=== PATIENT | female | born 1980 | race Caucasian/White ===

== ENCOUNTER 2019-04-11 19:10 | Emergency (ER) | payer SELFPAY ==
--- NOTE | ~2019-04-11 | XR_ITS ---
EXAMINATION: XR foot RT min 3V DATE: 04/11/2019 19:41 INDICATION: Pain at the right first metatarsal TECHNIQUE: Dorsoplantar, two oblique and lateral views of the right foot were obtained. COMPARISON: None. FINDINGS: Bone alignment is normal. No fracture. Mild polyarticular osteoarthritis with mild nonuniform joint s pace narrowing at multiple joints in the mid and forefoot no cortical erosions or periosteal reaction . Moderate Achilles calcaneal spur and small plantar calcaneal spur. Additional dorsal enthesophytes at both sides of the talonavicular joint. Soft tissues are unremarkable. No ankle joint effusion. IMPRESSION: 1. Mild polyarticular osteoarthritis and scattered enthesophytes. Reviewed, dictated and finalized at location [facility] [employer]
[2019-04-11 19:13] VITALS: BP 163/97; PULSE 101; RESP 18; TEMP 36.6; O2SAT 100
--- NOTE | 2019-04-11 19:35 | ED.LOWEXIN ---
HPI - Extremity Injury (Lower) General Chief Complaint: Extremity Injury, Lower <Delaney Newman PA-C - Last Filed: 04/11/19 20:25> Stated Complaint: R foot pain <Delaney Newman PA-C - Last Filed: 04/11/19 20:25> Time Seen by Provider: 04/11/19 19:22 <Delaney Newman PA-C - Last Filed: 04/11/19 20:25> Source: patient <Delaney Newman PA-C - Last Filed: 04/11/19 20:25> Mode of arrival: ambulatory <Delaney Newman PA-C - Last Filed: 04/11/19 20:25> Limitations: no limitations <Delaney Newman PA-C - Last Filed: 04/11/19 20:25> History of Present Illness HPI Narrative: This is a 38 year old female that presents to the ER for 38 year old female that presents to the ER for right foot pain since this morning. Reports no known injury or trauma. Reports pain in the dorsal surface of the foot the started this morning. No known injury or trauma. Pain is worse with weight bearing. Denies fever, erythema or edema. <Delaney Newman PA-C - Last Filed: 04/11/19 20:25> Related Data Allergies/Adverse Reactions: Allergies Allergy/AdvReac Type Severity Reaction Status Date / Time aspirin Allergy Intermediate Nausea and Verified 04/11/19 19:38 Vomiting <Delaney Newman PA-C - Last Filed: 04/11/19 20:25> Review of Systems Review of Systems: Narrative: CONSTITUTIONAL: Denies fever SKIN: Denies rash MUSCULOSKELETAL: Reports joint pain, and myalgia. NEUROLOGIC: Denies numbness <Delaney Newman PA-C - Last Filed: 04/11/19 20:25> All systems reviewed & are unremarkable except as noted in HPI and below <Delaney Newman PA-C - Last Filed: 04/11/19 20:25> PMFSH Past Medical History Medical History: Medical History (Updated 04/11/19 @ 20:23 by Delaney Newman PA-C) History of obesity <Delaney Newman PA-C - Last Filed: 04/11/19 20:25> Social History Social History: Social History (Updated 04/11/19 @ 19:40 by Delaney Newman PA-C) Substance use: never Gender identity (if verbalized by the patient): Female <Delaney Newman PA-C - Last Filed: 04/11/19 20:25> Exam Narrative: Exam Narrative: GENERAL: Well-appearing, well-nourished, and in no acute distress. HEAD: Normocephalic, atraumatic. EYES: EOMI. EXTREMITIES: Normal range of motion. No edema, erythema or obvious deformity. Tender to palpation of the right 1st metatarsal bone SKIN: Warm, dry, no rash. NEURO: No focal deficits. Alert and oriented x3. PSYCH: Normal mood and affect <Delaney Newman PA-C - Last Filed: 04/11/19 20:25> Course Vital Signs Vital signs: Vital Signs Temperature 36.6 C 04/11/19 19:13 Pulse Rate 101 H 04/11/19 19:13 Respiratory Rate 18 04/11/19 19:13 Blood Pressure 163/97 H 04/11/19 19:13 Pulse Oximetry 100 04/11/19 19:13 Temperature 37.0 C 04/11/19 20:55 Pulse Rate 68 04/11/19 20:55 Respiratory Rate 20 04/11/19 20:55 Blood Pressure 140/86 04/11/19 20:55 Pulse Oximetry 98 04/11/19 20:55 <Delaney Newman PA-C - Last Filed: 04/11/19 20:25> Vital Signs Temperature 36.6 C 04/11/19 19:13 Pulse Rate 101 H 04/11/19 19:13 Respiratory Rate 18 04/11/19 19:13 Blood Pressure 163/97 H 04/11/19 19:13 Pulse Oximetry 100 04/11/19 19:13 Temperature 37.0 C 04/11/19 20:55 Pulse Rate 68 04/11/19 20:55 Respiratory Rate 20 04/11/19 20:55 Blood Pressure 140/86 04/11/19 20:55 Pulse Oximetry 98 04/11/19 20:55 <[place]ia Cameron MD - Last Filed: 04/11/19 21:52> MDM - Extremity Injury (Lower) MDM Narrative Medical decision making narrative: Patient presents to the ER for right dorsal foot pain since this morning. No known injury or trauma. Right foot XR shows arthritis and scattered enthesophytes, no other acute osseous abnormalities. Patient will be placed in a post op shoe and given crutches for comfort. She was instructed to rest, ice and elevate. She is to take [id number] pain medication
[2019-04-11 20:55] VITALS: BP 140/86; PULSE 68; RESP 20; TEMP 37; O2SAT 98
== END 2019-04-11 20:58 | disposition home or self-care (01) ==
PROVIDERS: Emergency Provider Emergency Medicine
DX: M79.671 Pain in right foot (principal); E66.9 Obesity, unspecified; Z68.43 Body mass index [BMI] 50.0-59.9, adult; M19.071 Primary osteoarthritis, right ankle and foot
CPT/HCPCS: 73630; 99283; A9270